=== PATIENT | female | born 1950 ===

== ENCOUNTER 2016-09-23 09:49 | Emergency (ER) | payer SELFPAY ==
--- NOTE | 2016-09-23 10:06 | EDM.PDOC ---
[id number] Information: Reports: Patient History Limitations: Reports: No Limitations - Related Data Allergies Allergy/AdvReac Type Severity Reaction Status Date / Time No Known Allergies Allergy Verified 09/23/16 09:56 Home Meds: Home Meds Losartan [Cozaar] 50 mg PO DAILY #14 tablet 09/23/16 [Rx] amLODIPine [Norvasc] 10 mg PO BEDTIME #14 tablet 09/23/16 [Rx] Past Medical History Cardiovascular History: Reports: Hypertension Other OB/BYN History: tubal - Infectious Disease History Infectious Disease History: Reports: Chicken Pox, Measles, Mumps Social & Family History - Family History Family Medical History: Noncontributory - Tobacco Use Smoking Status *Q: Never Smoker - Caffeine Use Caffeine Use: Reports: Coffee - Recreational Drug Use Recreational Drug Use: No ED ROS GENERAL - Review of Systems Review Of Systems: See Below (As per history of present illness) ED EXAM, GENERAL - Physical Exam Exam: See Below (Per history of present illness) Course - Vital Signs Last Recorded V/S: Last Vital Signs Temp 36.7 C 09/23/16 12:22 Pulse 82 09/23/16 14:12 Resp 16 09/23/16 14:12 BP 207/95 H 09/23/16 14:12 Pulse Ox 96 09/23/16 14:12 - Orders/Labs/Meds Labs: Laboratory Tests 09/23/16 09/23/16 09/23/16 Range/Units 10:32 10:32 10:32 WBC 6.74 (4.0-11.0) K/uL RBC 4.77 (4.30-5.90) M/uL Hgb 14.6 (12.0-16.0) g/dL Hct 44.0 (36.0-46.0) % MCV 92.2 (80.0-98.0) fL MCH 30.6 (27.0-32.0) pg MCHC 33.2 (31.0-37.0) g/dL RDW Std Deviation 43.1 (28.0-62.0) fl RDW Coeff of Pat 13 (11.0-15.0) % Plt Count 243 (150-400) K/uL MPV 11.40 (7.40-12.00) fL Neut % (Auto) 51.5 (48.0-80.0) % Lymph % (Auto) 40.9 H (16.0-40.0) % Sawyer % (Auto) 6.2 (0.0-15.0) % Eos % (Auto) 1.3 (0.0-7.0) % Baso % (Auto) 0.1 (0.0-1.5) % Neut # (Auto) 3.5 (1.4-5.7) K/uL Lymph # (Auto) 2.8 H (0.6-2.4) K/uL Sawyer # (Auto) 0.4 (0.0-0.8) K/uL Eos # (Auto) 0.1 (0.0-0.7) K/uL Baso # (Auto) 0.0 (0.0-0.1) K/uL Nucleated RBC % 0.0 /100WBC Nucleated RBCs # 0 K/uL Sodium 141 (136-146) mmol/L Potassium 3.9 (3.5-5.1) mmol/L Chloride 106 (98-110) mmol/L Carbon Dioxide 21 (21-31) mmol/L BUN 10 (6.0-23.0) mg/dL Creatinine 0.8 (0.6-1.5) mg/dL Est Cr Clr Drug Dosing 56.45 mL/min Estimated GFR (MDRD) > 60.0 ml/min Glucose 115 H (60-110) mg/dL Calcium 9.7 (8.8-10.8) mg/dL Total Bilirubin 0.4 (0.1-1.5) mg/dL AST 21 (5-40) IU/L ALT 39 (8-54) IU/L Alkaline Phosphatase 78 (40-150) Troponin I < 0.10 (0.0-0.29) NG/ML Total Protein 7.6 (6.0-8.0) g/dL Albumin 4.3 (3.4-4.8) g/dL Globulin 3.3 (2.0-3.5) g/dL Albumin/Globulin Ratio 1.3 (1.3-2.8) Meds: Medications Discontinued Medications Generic Name Dose Route Start Last Admin Trade Name Freq PRN Reason Stop Dose Admin Amlodipine Besylate 10 mg 09/23/16 10:29 09/23/16 10:54 Norvasc PO 05/01/17 10:30 10 mg ONETIME ONE Administration Clonidine HCl 0.2 mg 09/23/16 10:25 09/23/16 11:17 Catapres PO 09/23/16 10:26 Not Given ONETIME ONE Clonidine HCl 0.1 mg 09/23/16 13:05 09/23/16 13:12 Catapres PO 09/23/16 13:06 0.1 mg ONETIME ONE Administration Iopamidol 100 ml 09/23/16 10:54 09/23/16 10:59 Isovue Multipack-370 (76%) IVPUSH 09/23/16 10:55 100 ml ONETIME STA Administration Losartan Potassium 50 mg 09/23/16 10:32 09/23/16 10:56 Cozaar PO 09/23/16 10:33 50 mg ONETIME ONE Administration Sodium Chloride 10 ml 09/23/16 10:25 Saline Flush FLUSH ASDIRECTED PRN Keep Vein Open Sodium Chloride 2.5 ml 09/23/16 10:25 Saline Flush FLUSH ASDIRECTED PRN Keep Vein Open Departure - Departure Time of Disposition: 13:05 Disposition: Home, Self-Care 01 Condition: Good Clinical Impression: Uncontrolled hypertension, Noncompliance with medication regimen Prescriptions: Losartan [Cozaar] 50 mg PO DAILY #14 tablet amLODIPine [Norvasc] 10 mg PO BEDTIME #14 tablet Instructions: Hypertension Referrals: PCP,None [Primary Care Provider] - Forms: ED Department Discharge Additional Instructions: Your blood pressure was very uncontrolled today. We did an extensive workup to make sure he didn't have any immediate injury to your organs which would require us to admit to to the hospital. Your workup was reassuring and is appropriate for you to followup as an outpatient with your Dr. Please realize is critically important that you take your blood pressure medicines exactly as prescribed. If for some reason you have a concern and are inclined to stop the medicine, be sure to discuss with the this with your Dr. first so he can prescribe an alternative replacement medicine. Failure to control your blood pressure adequately causes long-term damage to your body will put you at higher risk for loss of vision, heart attack or congestive heart failure, stroke, kidney failure as well as other problems. Uncontrolled blood pressure can also be immediately life threatening including the potential for bleeding in the brain , congestive heart failure or heart attack. Take meds exactly as prescribed and followup with your DrJesus tomorrow. Return immediately for new severe or worsening symptoms ED HISTORY OF PRESENT ILLNESS - General Chief Complaint: Cardiovascular Problem Stated Complaint: BLOOD PRESURE OVER 200 Time Seen by Provider: 09/23/16 10:05 Source of Information: Reports: Patient History Limitations: Reports: No Limitations - History of Present Illness INITIAL COMMENTS - FREE TEXT/NARRATIVE: HISTORY AND PHYSICAL: History of present illness: 66-year-old female with a history of hypertension now presents emergency department complaining of uncontrolled blood pressure. She states she ran out of her medication so she has not been taking her blood pressure meds. Her pressures been elevated at one point with a systolic blood pressure greater than 200. She's had mild headaches and nosebleeds recently and pressure was elevated today so she came to the emergency department for evaluation. No chest pain or shortness of air. No visual changes dizziness weakness or difficulty with speech or coordination Review of systems: As per history of present illness and below otherwise all systems reviewed and negative. Past medical history: As per history of present illness and as reviewed below otherwise noncontributory. Surgical history: As per history of present illness and as reviewed below otherwise noncontributory. Social history: No reported history of drug or alcohol abuse. Family history: As per history of present illness and as reviewed below otherwise noncontributory. Physical exam: HEENT: Atraumatic, normocephalic, pupils reactive, negative for conjunctival pallor or scleral icterus, mucous membranes moist, throat clear, neck supple, nontender, trachea midline. Lungs: Clear to auscultation, breath sounds equal bilaterally, chest nontender. Heart: S1S2, regular, negative for clicks, rubs, or JVD. Abdomen: Soft, nondistended, nontender. Negative for masses or hepatosplenomegaly. Negative for costovertebral tenderness. Pelvis: Stable nontender. Genitourinary: Deferred. Rectal: Deferred. Extremities: Atraumatic, negative for cords or calf pain. Neurovascular unremarkable. Neuro: Awake, alert, oriented. Cranial nerves II through XII unremarkable. Cerebellum unremarkable. Motor and sensory unremarkable throughout. Exam nonfocal. Diagnostics: [] Therapeutics: [] Impression: [] Plan: [Signs and symptoms consistent with uncontrolled hypertension secondary to medication noncompliance. Patient stable in the emergency department and workup negative for an organ damage. No further workup or treatment indicated at this time. Patient agrees with outpatient follow-up. Strict return precautions given] Definitive disposition and diagnosis as appropriate pending reevaluation and review of above. - Related Data Allergies/ADRs: Allergies Allergy/AdvReac Type Severity Reaction Status Date / Time No Known Allergies Allergy Verified 09/23/16 09:56 Home Meds: Home Meds Losartan [Cozaar] 50 mg PO DAILY #14 tablet 09/23/16 [Rx] amLODIPine [Norvasc] 10 mg PO BEDTIME #14 tablet 09/23/16 [Rx]
[2016-09-23] MEDS ORDERED: cloNIDine 0.1 MG Tab PO ONE ×2 (10:25→13:05)
[2016-09-23] MEDS ORDERED: Sodium Chloride 0.9% 2.5 ML Syringe FLUSH PRN (10:25)
[2016-09-23] MEDS ORDERED: Sodium Chloride 0.9% 10 ML Syringe FLUSH PRN (10:25)
[2016-09-23] MEDS ORDERED: amLODIPine 5 MG Tab PO ONE (10:29)
[2016-09-23] MEDS ORDERED: Losartan 50 MG Tab PO ONE (10:32)
[2016-09-23] MEDS ORDERED: Iopamidol 755 MG/ML 500 ML Multipack Bottle IVPUSH STA (10:54)
--- NOTE | 2016-09-23 11:12 | CR ---
EXAMINATION: Portable chest radiograph. HISTORY: Chest pain. FINDINGS: The trachea is midline. The cardiomediastinal silhouette is within normal limits. No pulmonary infil trates, effusions or pneumothorax. Osseous structures appear unremarkable. IMPRESSION: No acute cardiopulmonary process.
[2016-09-23 11:28] LABS: CHLORIDE,CL 106 mmol/L (98-110); SODIUM,NA 141 mmol/L (136-146)
--- NOTE | 2016-09-23 12:29 | CT ---
EXAMINATION: CTA head HISTORY: Uncontrolled blood pressure COMPARISION: None TECHNIQUE: Axial CT images obtained through the head before and following the administration of 100 mL of Isovue-370. Coronal and sagittal reconstructions obtained. There is poor bolus timing for an a rterial study. FINDINGS: No evidence of midline shift, hydrocephalus or edema. No low-attenuation changes to suggest acute in farct. There is an old tiny lacunar infarct within the right frontal subcortical white matter. No e vidence of intra-axial hemorrhage. No evidence of extra-axial high-attenuation collection to sugges t epidural or subdural hematoma. No intracranial calcifications detected. No evidence of vascular calcifications. Small mucous retention cysts are noted within the maxillary sinuses. No intracranial enhancing lesions are detected. The orbits and globes are symmetric. The vertebrobasilar system appears grossly unremarkable. There is a origin of the senior investment analyst bilater ally. The distal internal carotid arteries appear normal. The middle and the anterior cerebral arter ies appear normal. No evidence of an aneurysm or significant stricture. IMPRESSION: 1. No acute intracranial findings identified. 2. Grossly unremarkable intracranial arterial circulation.
[2016-09-23 18:32] VITALS: BP 207/95
== END 2016-09-23 14:13 | disposition home or self-care (01) ==
LOC: MW.ED 09:49
DX: I10 Essential (primary) hypertension (principal); Z79.899 Other long term (current) drug therapy; Z91.14 Patient's other noncompliance with medication regimen
CPT/HCPCS: 36415; 70496; 71010; 80053; 84484; 85025; 93005; A9270; Q9967; 99284; 99284-25